=== PATIENT | male | born 1965 | race Caucasian/White ===

== ENCOUNTER 2020-11-08 23:49 | Inpatient (IN) | payer MEDICARE, MEDICAID ==
[~2020-11-08] VITALS: Ht 175.3 cm; Wt 111.6 kg
[~2020-11-08 23:49] MED LIST: VIBRAMYCIN100 MG PO
[2020-11-09 00:48] LABS: HEMOGLOBIN 15.5 gm/dl (14.0-17.5); RED BLOOD COUNT 5.64 M/UL (4.20-5.50); WHITE BLOOD COUNT 6.7 K/UL (4.5-11.0)
[2020-11-09 01:12] LABS: BUN/CREATININE RATIO 11 (0-10)
[2020-11-09] MEDS ORDERED: LEVOTHYROXINE50 MC1 PO (10:51)
[2020-11-09] MEDS ORDERED: NORVASC2.5 MG PO (10:52)
[2020-11-09] MEDS ORDERED: ZYRTEC10 MG PO (10:55)
[2020-11-09] MEDS ORDERED: ALLOPURINOL300 MG PO (10:56)
[2020-11-09] MEDS ORDERED: VITAMIN D325 MCG PO (10:57)
[2020-11-09] MEDS ORDERED: OMEPRAZOLE20 MG PO (10:58)
[2020-11-09] MEDS ORDERED: FISH OIL 1,0001 EAC1 PO (10:58)
[2020-11-09] MEDS ORDERED: PRESERVISION A1 EACH PO (10:59)
[2020-11-09] MEDS ORDERED: GLUCOPHAGE 500500 MG PO (11:01)
[2020-11-09] MEDS ORDERED: B12 ACTIVE1000 MCG PO (11:04)
[2020-11-09] MEDS ORDERED: VITAMIN B-121000 MCG PO (13:00)
[2020-11-10 06:36] LABS: HEMOGLOBIN 14.3 gm/dl (14.0-17.5); RED BLOOD COUNT 5.28 M/UL (4.20-5.50); WHITE BLOOD COUNT 7.8 K/UL (4.5-11.0)
[2020-11-10 06:59] LABS: BUN/CREATININE RATIO 14 (0-10)
[2020-11-11 03:56] LABS: HEMOGLOBIN 14.3 gm/dl (14.0-17.5); RED BLOOD COUNT 5.2 M/UL (4.20-5.50); WHITE BLOOD COUNT 9.1 K/UL (4.5-11.0)
--- NOTE | 2020-11-11 04:03 | NUR ---
2100- PLACED PATIENT ON 7 LITERS HI FLOW NASAL CANNULA FROM REGULAR NC AND CALLED RESPIRATORY TO GIVE THE PATIENT A BREATHING TREATMENT. PATIENT'S CURRENT OXYGEN LEVEL IS UPPER 70'S AND LOW 80'S PRIOR TO HI FLOW NC. 0122- NOTIFIED DR. HUGHES PATIENT'S OXYGEN HAS ONCE AGAIN DROPPED TO UPPER 70'S LOW 80'S AND PATIENT IS STRUGGLING TO TAKE DEEP BREATHS, STATES "I FEEL LIKE I HAVE A HUGE RUBBER BAND TIED AROUND MY CHEST, I CAN'T TAKE A DEEP BREATH." PATIENT WAS PLACED ON AIRVO AND ABG WAS ORDERED, PT'S CURRENT O2 LEVEL IS UPPER 80'S/LOW 90'S. 0200- PT IS STATING, "I CAN'T TOLERATE THE AIRVO, I FEEL LIKE I STILL CAN'T BREATHE." NOTIFIED DR. HUGHES WHO GAVE ME THE ORDER TO PLACE THE PATIENT ON BIPAP WITH SETTINGS 18/12. PT IS CURRENTLY LOW TO MID 90'S ON BIPAP AT SETTINGS 12/8 RATE 22 AND 65%. HE STATES, "I AM FEELING BETTER." WILL CONTINUE TO MONITOR THE PATIENT CLOSELY.
[2020-11-11 04:15] LABS: BUN/CREATININE RATIO 16 (0-10)
[2020-11-12 05:50] LABS: RED BLOOD COUNT 5.52 M/UL (4.20-5.50); WHITE BLOOD COUNT 9.1 K/UL (4.5-11.0)
[2020-11-12 06:08] LABS: BUN/CREATININE RATIO 16 (0-10)
[2020-11-13 06:53] LABS: HEMOGLOBIN 14.1 gm/dl (14.0-17.5); RED BLOOD COUNT 5.18 M/UL (4.20-5.50); WHITE BLOOD COUNT 9.6 K/UL (4.5-11.0)
[2020-11-13 07:18] LABS: BUN/CREATININE RATIO 19 (0-10)
[2020-11-14 08:34] LABS: HEMOGLOBIN 13.7 gm/dl (14.0-17.5); RED BLOOD COUNT 5.01 M/UL (4.20-5.50)
[2020-11-14 08:35] LABS: WHITE BLOOD COUNT 13.2 K/UL (4.5-11.0)
[2020-11-14 09:05] LABS: BUN/CREATININE RATIO 20 (0-10)
[2020-11-15 07:30] LABS: HEMOGLOBIN 13.2 gm/dl (14.0-17.5); RED BLOOD COUNT 4.84 M/UL (4.20-5.50); WHITE BLOOD COUNT 14.5 K/UL (4.5-11.0)
[2020-11-15 07:45] LABS: BUN/CREATININE RATIO 22 (0-10)
[2020-11-16 02:46] LABS: HEMOGLOBIN 13.5 gm/dl (14.0-17.5); RED BLOOD COUNT 4.75 M/UL (4.20-5.50); WHITE BLOOD COUNT 15.5 K/UL (4.5-11.0)
[2020-11-16 03:20] LABS: BUN/CREATININE RATIO 21 (0-10)
[2020-11-16] MEDS ORDERED: GLUCOPHAGE 500500 MG PO ×4 (10:47→11:02)
[2020-11-16] MEDS ORDERED: PROVENTIL HFA6.7 GM INH ×4 (10:47→11:02)
[2020-11-16] MEDS ORDERED: MEDROL DOSEPAK 24 MG PO ×4 (10:47→11:02)
== END 2020-11-16 17:47 | disposition home or self-care (01) | DRG 177 ==
LOC: ER1 23:49 → CDU 11-09 03:04 → MED SURG 4 11-09 03:04
PROVIDERS: Internal Medicine; Physician Assistant Medical; Student in an Organized Health Care Education/Training Program; ADMIT Internal Medicine
PROC: 8E0ZXY6 Isolation (ICD-10-PCS; principal; 2020-11-09)
PROC: 3E0333Z Introduction of Anti-inflammatory into Peripheral Vein, Percutaneous Approach (ICD-10-PCS; 2020-11-09)
PROC: XW033E5 Introduction of Remdesivir Anti-infective into Peripheral Vein, Percutaneous Approach, New Technology Group 5 (ICD-10-PCS; 2020-11-10)
PROC: 5A09457 Assistance with Respiratory Ventilation, 24-96 Consecutive Hours, Continuous Positive Airway Pressure (ICD-10-PCS; 2020-11-10)
PROC: 5A0945A Assistance with Respiratory Ventilation, 24-96 Consecutive Hours, High Flow/Velocity Cannula (ICD-10-PCS; 2020-11-15)
DX: U07.1 COVID-19 (principal); J12.82 Pneumonia due to coronavirus disease 2019; J96.01 Acute respiratory failure with hypoxia; J15.9 Unspecified bacterial pneumonia; T38.0X5A Adverse effect of glucocorticoids and synthetic analogues, initial encounter; E11.65 Type 2 diabetes mellitus with hyperglycemia; I10 Essential (primary) hypertension; M10.9 Gout, unspecified; E03.9 Hypothyroidism, unspecified; K21.9 Gastro-esophageal reflux disease without esophagitis; F41.9 Anxiety disorder, unspecified; E78.5 Hyperlipidemia, unspecified; Z79.4 Long term (current) use of insulin; Z90.49 Acquired absence of other specified parts of digestive tract; Z88.8 Allergy status to other drugs, medicaments and biological substances; Z80.1 Family history of malignant neoplasm of trachea, bronchus and lung
CPT/HCPCS: 36415; 36600; 71045; 80048; 80053; 82550; 82553; 82803; 82962; 83605; 83735; 83874; 83880; 84484; 85025; 85027; 85379; 87040; 93005; 94640; 94660; 94664; 94760; 94761; 96365; 96375; 99285; J0456; J0696; J1100; J1650; J2060; J7030; U0002

== ENCOUNTER 2021-01-30 15:03 | Emergency (ER) | payer OTHER ==
[~2021-01-30 15:03] MED LIST changes: +ALLOPURINOL300 MG PO; +B12 ACTIVE1000 MCG PO; +FISH OIL 1,0001 EAC1 PO; +GLUCOPHAGE 500500 MG PO; +LEVOTHYROXINE50 MC1 PO; +MEDROL DOSEPAK 24 MG PO; +NORVASC2.5 MG PO; +OMEPRAZOLE20 MG PO; +PRESERVISION A1 EACH PO; +PROVENTIL HFA6.7 GM INH; +VITAMIN B-121000 MCG PO; +VITAMIN D325 MCG PO; +ZYRTEC10 MG PO
[2021-01-30] MEDS ORDERED: IBU800 MG PO (17:40)
== END 2021-01-30 18:55 | disposition home or self-care (01) ==
LOC: ER1 15:03
DX: S06.0X0A Concussion without loss of consciousness, initial encounter (principal); S20.219A Contusion of unspecified front wall of thorax, initial encounter; S39.012A Strain of muscle, fascia and tendon of lower back, initial encounter; I10 Essential (primary) hypertension; Z86.16 Personal history of COVID-19; V49.9XXA Car occupant (driver) (passenger) injured in unspecified traffic accident, initial encounter
CPT/HCPCS: 70450; 71046; 72100; 72125; 99284

== ENCOUNTER 2021-11-23 21:20 | Emergency (ER) | payer OTHER, MEDICARE ==
[~2021-11-23 21:20] MED LIST changes: +IBU800 MG PO
[2021-11-23 21:49] LABS: HEMOGLOBIN 16.1 gm/dl (14.0-17.5); RED BLOOD COUNT 5.57 M/UL (4.20-5.50); WHITE BLOOD COUNT 8.8 K/UL (4.5-11.0)
[2021-11-23 22:39] LABS: BUN/CREATININE RATIO 17 (0-10)
== END 2021-11-24 03:03 | disposition short-term general hospital (02) ==
LOC: ER1 21:20
PROVIDERS: Physician Assistant
DX: G45.9 Transient cerebral ischemic attack, unspecified (principal); E78.5 Hyperlipidemia, unspecified; I10 Essential (primary) hypertension; E11.9 Type 2 diabetes mellitus without complications; Z20.822 Contact with and (suspected) exposure to COVID-19; Z88.8 Allergy status to other drugs, medicaments and biological substances
CPT/HCPCS: 70450; 71045; 80053; 82550; 82553; 84484; 85025; 85610; 93005; 99285; U0002